=== PATIENT | female | born 1975 | race Caucasian/White ===

== ENCOUNTER 2017-02-01 13:11 | Emergency (ER) | payer SELFPAY ==
[~2017-02-01] VITALS: Ht 170.2 cm; Wt 70.0 kg
[~2017-02-01 13:11] MED LIST: FLEXERIL 1010 MG/TAB PO
[2017-02-01 13:15] VITALS: BP 101/67; PULSE 100; TEMP 97.9
[2017-02-01] MEDS ORDERED: PRILOSEC10 MG PO (13:19)
[2017-02-01] MEDS ORDERED: ULTRAM 50MG TAB50 MG PO (14:47)
== END 2017-02-01 15:01 | disposition home or self-care (01) ==
LOC: COL.ER 13:11
DX: M54.5 Low back pain (principal)
CPT/HCPCS: J1885

== ENCOUNTER 2017-10-13 13:42 | Emergency (ER) | payer OTHER ==
[~2017-10-13] VITALS: Ht 170.2 cm; Wt 68.2 kg
[~2017-10-13 13:42] MED LIST changes: +PRILOSEC10 MG PO; +ULTRAM 50MG TAB50 MG PO
[2017-10-13 13:45] VITALS: BP 109/86; TEMP 98.9
[2017-10-13 15:28] VITALS: PULSE 85
== END 2017-10-13 15:30 | disposition home or self-care (01) ==
LOC: COL.ER 13:42
DX: M54.5 Low back pain (principal); F17.210 Nicotine dependence, cigarettes, uncomplicated
CPT/HCPCS: J1885; J2360

== ENCOUNTER → 2017-10-19 | Outpatient (CLI) | payer OTHER | LOC: COL.RAD 12:30 | DX: M54.5 Low back pain (principal); Z88.2 Allergy status to sulfonamides; Z88.8 Allergy status to other drugs, medicaments and biological substances; F17.200 Nicotine dependence, unspecified, uncomplicated | CPT/HCPCS: A9585 ==

== ENCOUNTER → 2017-11-21 | Outpatient (CLI) | payer OTHER | LOC: MHCPAIN 13:23 | DX: G89.29 Other chronic pain (principal); M47.817 Spondylosis without myelopathy or radiculopathy, lumbosacral region; M53.3 Sacrococcygeal disorders, not elsewhere classified | CPT/HCPCS: G0463 ==

== ENCOUNTER → 2018-01-08 | Outpatient (CLI) | payer OTHER | LOC: MHCPAIN 14:22 | DX: G89.29 Other chronic pain (principal); M47.817 Spondylosis without myelopathy or radiculopathy, lumbosacral region; M53.3 Sacrococcygeal disorders, not elsewhere classified | CPT/HCPCS: G0463 ==

== ENCOUNTER → 2018-02-07 | Outpatient (CLI) | payer OTHER | LOC: MHCPAIN 15:15 | DX: G89.29 Other chronic pain (principal); M47.817 Spondylosis without myelopathy or radiculopathy, lumbosacral region; M53.3 Sacrococcygeal disorders, not elsewhere classified | CPT/HCPCS: G0463 ==

== ENCOUNTER → 2018-03-06 | Outpatient (CLI) | payer OTHER | LOC: MHCPAIN 13:35 | DX: G89.29 Other chronic pain (principal); M47.817 Spondylosis without myelopathy or radiculopathy, lumbosacral region; M53.3 Sacrococcygeal disorders, not elsewhere classified | CPT/HCPCS: G0463 ==

== ENCOUNTER → 2018-04-18 | Outpatient (CLI) | payer OTHER | LOC: MHCPAIN 15:08 | DX: G89.29 Other chronic pain (principal); M47.817 Spondylosis without myelopathy or radiculopathy, lumbosacral region; M53.3 Sacrococcygeal disorders, not elsewhere classified | CPT/HCPCS: G0463 ==